=== PATIENT | female | born 1990 | race Caucasian/White ===

== ENCOUNTER 2016-09-15 21:48 | Inpatient (IN) | payer SELFPAY ==
[~2016-09-15] VITALS: Ht 160 cm; Wt 67.7 kg
[2016-09-15 22:29] LABS: MEAN CELL VOLUME 83 fl (80.0-100.0); MEAN CORPUSCULAR HGB CONC 32 g/dl (33.0-37.0); MEAN PLATELET VOLUME 8.1 fl (7.4-10.4); PLATELET COUNT 133 K/mm3 (130-400); RED BLOOD COUNT 3.89 M/mm3 (4.10-5.30); REDCELL DISTRIBUTION WIDTH-CV 14.4 % (11.5-14.5); WHITE BLOOD COUNT 3.8 K/mm3 (4.8-10.8)
[2016-09-15 22:33] LABS: HEMATOCRIT 32.4 % (37.0-47.0); HEMOGLOBIN 10.5 g/dl (12.5-16.0); MEAN CORPUSCULAR HEMOGLOBIN 27 pg (27.0-31.0)
[2016-09-15 22:41] LABS: ALANINE AMINOTRANSFERASE 65 U/L (9-52); ALBUMIN 3.5 gm/dL (3.5-5.0); ALKALINE PHOSPHATASE 196 U/L (50-136); ANION GAP 13 mmol/L (7-16); BILIRUBIN,TOTAL 0.8 mg/dL (0.0-1.0); BLOOD UREA NITROGEN 12 mg/dL (7-17); CALCIUM 8.6 mg/dL (8.4-10.2); CARBON DIOXIDE 23 mmol/L (22-30); CHLORIDE 102 mmol/L (98-107); CREATININE, serum 0.73 mg/dL (0.52-1.25); GLUCOSE 86 mg/dL (74-106); LIPASE 54 U/L (23-300); POTASSIUM 3.3 mmol/L (3.4-5.0); SODIUM 137 mmol/L (137-145); TOTAL PROTEIN 6.6 gm/dL (6.4-8.2)
[2016-09-15 22:51] LABS: BAND 53 % (0-10); METAMYELOCYTE 1 % (0-0); MYELOCYTE 1 % (0-0); NEUTROPHILS 32 % (42.0-75.2); PLATELET ESTIMATE DECREASED (NORMAL); TOTAL CELLS COUNTED 100
[2016-09-15 22:56] LABS: TOXIC GRANULATION PRESENT
[2016-09-15 22:57] LABS: ADD PATHOLOGY DIFF REVIEW YES; DOHLE BODIES PRESENT
[2016-09-15 23:39] LABS: AMPHETAMINE URINE POSITIVE; BARBITURATES URINE NEGATIVE; BENZODIAZEPINES URINE POSITIVE; BUPRENORPHINE URINE NEGATIVE; METHADONE URINE NEGATIVE; OPIATES URINE POSITIVE; OXYCODONE URINE POSITIVE; PHENCYCLIDINE URINE NEGATIVE; PROPOXYPHENE URINE NEGATIVE; THC CANNABINOIDS URINE POSITIVE
[2016-09-15 23:41] LABS: PH 6 (5-8); SQUAMOUS EPITHELIAL 0-2 /hpf; URINE APPEARANCE Hazy; URINE BACTERIA Rare /hpf; URINE BILIRUBIN Negative (NEGATIVE); URINE BLOOD 3+ (NEGATIVE); URINE COLOR Red; URINE GLUCOSE Negative (NEGATIVE); URINE KETONE Negative (NEGATIVE); URINE RBC >50 /hpf; URINE UROBILINOGEN Negative (NEGATIVE)
[2016-09-16] VITALS (335 sets, daily range): BP systolic 105–114; BP diastolic 62–84; PULSE 74–122; TEMP 97–99.6; O2SAT 74–100
[2016-09-16 06:27] LABS: ALANINE AMINOTRANSFERASE 116 U/L (9-52); ALBUMIN 2.9 gm/dL (3.5-5.0); ALKALINE PHOSPHATASE 170 U/L (50-136); C-REACTIVE PROTEIN 3.9 mg/dL (0.0-0.9); TOTAL PROTEIN 5.8 gm/dL (6.4-8.2)
[2016-09-16 06:31] LABS: BILIRUBIN,DIRECT 0.5 mg/dL (0.0-0.4); BILIRUBIN,TOTAL 0.5 mg/dL (0.0-1.0)
[2016-09-16 06:51] LABS: TROPONIN-I < 0.012 ng/mL (0.000-0.034)
[2016-09-16 08:24] LABS: MEAN CELL VOLUME 83 fl (80.0-100.0); MEAN CORPUSCULAR HGB CONC 32 g/dl (33.0-37.0); MEAN PLATELET VOLUME 10.4 fl (7.4-10.4); PLATELET COUNT 116 K/mm3 (130-400); RED BLOOD COUNT 3.57 M/mm3 (4.10-5.30); REDCELL DISTRIBUTION WIDTH-CV 14.5 % (11.5-14.5); WHITE BLOOD COUNT 10.5 K/mm3 (4.8-10.8)
[2016-09-16 08:25] LABS: ADD PATHOLOGY DIFF REVIEW NO; HEMATOCRIT 29.6 % (37.0-47.0); HEMOGLOBIN 9.6 g/dl (12.5-16.0); MEAN CORPUSCULAR HEMOGLOBIN 27 pg (27.0-31.0)
[2016-09-16 08:40] LABS: PATHOLOGY DIFF REVIEW OK
[2016-09-16 09:24] LABS: BAND 53 % (0-10); NEUTROPHILS 44 % (42.0-75.2); TOTAL CELLS COUNTED 100
[2016-09-16 09:27] LABS: PLATELET ESTIMATE DECREASED (NORMAL)
[2016-09-16 09:38] LABS: CALCIUM 7.9 mg/dL (8.4-10.2); CREATININE, serum 0.69 mg/dL (0.52-1.25); POTASSIUM 3.4 mmol/L (3.4-5.0)
== END 2016-09-16 18:15 | disposition left against medical advice (07) | DRG 864 ==
LOC: COL.ER 21:48 → ICU 09-16 00:15 → MEDICAL 09-16 13:00
PROVIDERS: Emergency Medicine; Family Medicine
DX: R50.9 Fever, unspecified (principal); B18.2 Chronic viral hepatitis C; E86.0 Dehydration; E87.6 Hypokalemia; F17.210 Nicotine dependence, cigarettes, uncomplicated; F14.10 Cocaine abuse, uncomplicated; F10.10 Alcohol abuse, uncomplicated; F15.10 Other stimulant abuse, uncomplicated; J20.9 Acute bronchitis, unspecified
CPT/HCPCS: C9113; J1650; J1885; J2405; J2543; J2930; J3370; J3480; J7030; J7050; Q9967

== ENCOUNTER 2016-09-17 00:08 | Inpatient (IN) | payer SELFPAY ==
[~2016-09-17] VITALS: Ht 160 cm; Wt 71.1 kg
[2016-09-17] VITALS (12 sets, daily range): BP systolic 105–146; BP diastolic 53–96; PULSE 61–110; TEMP 97.5–98.7
[2016-09-17 00:46] LABS: BASO % 0.2 % (0.0-2.0); EOS % 0.1 % (0-4.0); GRAN # 15.3 (1.4-6.5); GRAN % 81.5 % (42.2-75.2); HEMATOCRIT 31.4 % (37.0-47.0); HEMOGLOBIN 10.2 g/dl (12.5-16.0); LYMPH # 2.2 (1.2-3.4); LYMPH % 11.7 % (20.0-51.0); MEAN CELL VOLUME 83 fl (80.0-100.0); MEAN CORPUSCULAR HEMOGLOBIN 27 pg (27.0-31.0); MEAN CORPUSCULAR HGB CONC 33 g/dl (33.0-37.0); MEAN PLATELET VOLUME 10.1 fl (7.4-10.4); MONO # 1.1 (0.1-0.6); MONO % 5.8 % (1.7-9.3); PLATELET COUNT 149 K/mm3 (130-400); RED BLOOD COUNT 3.77 M/mm3 (4.10-5.30); REDCELL DISTRIBUTION WIDTH-CV 15.1 % (11.5-14.5); WHITE BLOOD COUNT 18.8 K/mm3 (4.8-10.8)
[2016-09-17 00:55] LABS: PH 5 (5-8); SQUAMOUS EPITHELIAL 0-2 /hpf; URINE APPEARANCE Clear; URINE BACTERIA None Seen /hpf; URINE BILIRUBIN Negative (NEGATIVE); URINE BLOOD 2+ (NEGATIVE); URINE COLOR Yellow; URINE GLUCOSE 1+ (NEGATIVE); URINE KETONE Negative (NEGATIVE); URINE RBC 0-2 /hpf; URINE UROBILINOGEN Negative (NEGATIVE); URINE WBC 0-2 /hpf
[2016-09-17 00:58] LABS: ADJUSTED CALCIUM 8.4 mg/dL (8.4-10.2); ALBUMIN 3.7 gm/dL (3.5-5.0); BILIRUBIN,TOTAL 0.6 mg/dL (0.0-1.0); C-REACTIVE PROTEIN 7.9 mg/dL (0.0-0.9); CALCIUM 8.2 mg/dL (8.4-10.2); CREATININE, serum 0.6 mg/dL (0.52-1.25); POTASSIUM 3.4 mmol/L (3.4-5.0); TOTAL PROTEIN 7.2 gm/dL (6.4-8.2)
[2016-09-17 01:03] LABS: AMPHETAMINE URINE POSITIVE; BARBITURATES URINE NEGATIVE; BENZODIAZEPINES URINE POSITIVE; BUPRENORPHINE URINE NEGATIVE; METHADONE URINE NEGATIVE; OPIATES URINE POSITIVE; OXYCODONE URINE NEGATIVE; PHENCYCLIDINE URINE NEGATIVE; PROPOXYPHENE URINE NEGATIVE; THC CANNABINOIDS URINE POSITIVE
[2016-09-17 01:54] LABS: INR 1.3 (0.8-3.0); PROTHROMBIN TIME 14.3 SECONDS (9.7-12.8)
[2016-09-17 01:57] LABS: PARTIAL THROMBOPLASTIN TIME 34.7 SECONDS (26.0-37.0)
[2016-09-17 06:46] LABS: HEMATOCRIT 26.8 % (37.0-47.0); HEMOGLOBIN 8.7 g/dl (12.5-16.0); MEAN CELL VOLUME 84 fl (80.0-100.0); MEAN CORPUSCULAR HEMOGLOBIN 27 pg (27.0-31.0); MEAN CORPUSCULAR HGB CONC 33 g/dl (33.0-37.0); MEAN PLATELET VOLUME 9.9 fl (7.4-10.4); PLATELET COUNT 108 K/mm3 (130-400); WHITE BLOOD COUNT 12.4 K/mm3 (4.8-10.8)
[2016-09-17 06:47] LABS: ADD PATHOLOGY DIFF REVIEW NO
[2016-09-17 06:59] LABS: ADJUSTED CALCIUM 8.4 mg/dL (8.4-10.2); ALBUMIN 2.9 gm/dL (3.5-5.0); BILIRUBIN,TOTAL 0.3 mg/dL (0.0-1.0); CALCIUM 7.5 mg/dL (8.4-10.2); CREATININE, serum 0.62 mg/dL (0.52-1.25); POTASSIUM 3.2 mmol/L (3.4-5.0); TOTAL PROTEIN 5.8 gm/dL (6.4-8.2)
[2016-09-17 07:36] LABS: BAND 47 % (0-10); NEUTROPHILS 29 % (42.0-75.2); PLATELET ESTIMATE DECREASED (NORMAL); TOTAL CELLS COUNTED 100
[2016-09-18] VITALS (8 sets, daily range): BP systolic 132–155; BP diastolic 89–110; PULSE 57–120; TEMP 97.4–98.9
[2016-09-18 08:58] LABS: BASO % 0.2 % (0.0-2.0); EOS # 0.1 (0.0-0.7); EOS % 0.6 % (0-4.0); GRAN # 6.6 (1.4-6.5); GRAN % 65.7 % (42.2-75.2); LYMPH # 2.7 (1.2-3.4); LYMPH % 26.4 % (20.0-51.0); MEAN CELL VOLUME 83 fl (80.0-100.0); MEAN CORPUSCULAR HGB CONC 32 g/dl (33.0-37.0); MEAN PLATELET VOLUME 10.1 fl (7.4-10.4); MONO # 0.7 (0.1-0.6); MONO % 6.6 % (1.7-9.3); PLATELET COUNT 153 K/mm3 (130-400); RED BLOOD COUNT 3.53 M/mm3 (4.10-5.30); REDCELL DISTRIBUTION WIDTH-CV 14.9 % (11.5-14.5); WHITE BLOOD COUNT 10.1 K/mm3 (4.8-10.8)
[2016-09-18 09:10] LABS: HEMATOCRIT 29.4 % (37.0-47.0); HEMOGLOBIN 9.5 g/dl (12.5-16.0); MEAN CORPUSCULAR HEMOGLOBIN 27 pg (27.0-31.0)
[2016-09-18 09:34] LABS: ADJUSTED CALCIUM 8.8 mg/dL (8.4-10.2); ALBUMIN 3.2 gm/dL (3.5-5.0); BILIRUBIN,TOTAL 0.3 mg/dL (0.0-1.0); CALCIUM 8.2 mg/dL (8.4-10.2); CREATININE, serum 0.61 mg/dL (0.52-1.25); MAGNESIUM 1.8 mg/dL (1.6-2.3); POTASSIUM 4.3 mmol/L (3.4-5.0); TOTAL PROTEIN 6.3 gm/dL (6.4-8.2)
[2016-09-18 10:16] LABS: VANCOMYCIN TROUGH 19.8 ug/mL (7.00-20.00)
== END 2016-09-18 18:41 | disposition home or self-care (01) | DRG 872 ==
LOC: COL.ER 00:08 → MEDICAL 00:51
PROVIDERS: Family Medicine; Internal Medicine; Nurse Practitioner Family; Physician Assistant
DX: A41.9 Sepsis, unspecified organism (principal); K81.0 Acute cholecystitis; K81.1 Chronic cholecystitis; B18.2 Chronic viral hepatitis C; F11.10 Opioid abuse, uncomplicated; F14.10 Cocaine abuse, uncomplicated; F15.10 Other stimulant abuse, uncomplicated; F17.210 Nicotine dependence, cigarettes, uncomplicated; J45.909 Unspecified asthma, uncomplicated; F19.10 Other psychoactive substance abuse, uncomplicated; E87.6 Hypokalemia
CPT/HCPCS: 87522; 90791-AI; 99223-AI; 99232-AI; 99233-AI; A9537; J0456; J1650; J2060; J2270; J2543; J3370; J3480; J7030; J7050

== ENCOUNTER 2017-06-23 04:41 | Inpatient (IN) | payer MEDICAID ==
[2017-06-23] VITALS (42 sets, daily range): BP systolic 106–156; BP diastolic 57–93; PULSE 63–101; TEMP 97.5–98.6
[~2017-06-23] VITALS: Ht 160 cm; Wt 84.5 kg
[2017-06-23] MEDS ORDERED: PRENATAL MVI (05:10)
[2017-06-23 07:22] LABS: MEAN CELL VOLUME 84 fl (80.0-100.0); MEAN CORPUSCULAR HGB CONC 32 g/dl (33.0-37.0); MEAN PLATELET VOLUME 10.4 fl (7.4-10.4); PLATELET COUNT 335 K/mm3 (130-400); RED BLOOD COUNT 4.22 M/mm3 (4.10-5.30); REDCELL DISTRIBUTION WIDTH-CV 14.8 % (11.5-14.5)
[2017-06-23 07:24] LABS: HEMATOCRIT 35.5 % (37.0-47.0); HEMOGLOBIN 11.3 g/dl (12.5-16.0); MEAN CORPUSCULAR HEMOGLOBIN 27 pg (27.0-31.0)
[2017-06-23 07:32] LABS: TRICYCLIC ANTIDEPRESS URINE NEGATIVE
[2017-06-23 07:55] LABS: BAND 9 % (0-10); BASOPHIL 2 % (0-2); EOSINOPHIL 2 % (0-4); LYMPHOCYTE 37 % (20.0-51.0); NEUTROPHILS 48 % (42.0-75.2)
[2017-06-23 07:56] LABS: POLYCHROMASIA 1+
[2017-06-23 07:58] LABS: HYPOCHROMIA 1+; PLATELET ESTIMATE NORMAL (NORMAL)
[2017-06-24 08:00] VITALS: BP 115/67; PULSE 79; TEMP 97.9
[2017-06-24] MEDS ORDERED: PERCOCET 325 MG1 TA2 PO (11:25)
[2017-06-24] MEDS ORDERED: MOTRIN 800800 MG/TAB PO (11:25)
[2017-06-24 12:35] VITALS: BP 129/78; PULSE 88; TEMP 98.4
== END 2017-06-24 17:30 | disposition home or self-care (01) | DRG 775 ==
LOC: LDRO 04:41 → OB 06:35 → LDR 06:35 → OB 17:45
PROVIDERS: Obstetrics & Gynecology
PROC: 10D07Z6 Extraction of Products of Conception, Vacuum, Via Natural or Artificial Opening (ICD-10-PCS; principal; 2017-06-23)
DX: O76 Abnormality in fetal heart rate and rhythm complicating labor and delivery (principal); O99.322 Drug use complicating pregnancy, second trimester; O24.420 Gestational diabetes mellitus in childbirth, diet controlled; Z3A.41 41 weeks gestation of pregnancy; Z37.0 Single live birth; O99.332 Smoking (tobacco) complicating pregnancy, second trimester
CPT/HCPCS: J2400; J2590; J2795; J7120